=== PATIENT | male | born 1990 | race Caucasian/White ===

== ENCOUNTER 2022-03-20 22:18 | Emergency (ER) | payer BC ==
[2022-03-20 23:17] LABS: ALT (SGPT) 30 U/L (8-55); AST (SGOT) 75 U/L (5-34); Albumin 4.7 g/dL (3.5-5.0); Alkaline Phosphatase 57 U/L (40-110); Anion Gap 29 mmol/L (10-20); BUN (Urea Nitrogen) 17 mg/dL (8.9-20.6); Bilirubin, Total 1.6 mg/dL (0.2-1.2); CK (CPK) 2099 U/L (30-200); Calc. Creatinine Clearance 0 mL/min (70-130); Calcium 9.1 mg/dL (7.8-10.44); Carbon Dioxide 21 mmol/L (22-29); Chloride 83 mmol/L (98-107); Estimated GFR 82; Globulin 2.1 g/dL (2.4-3.5); Glucose 109 mg/dL (70-105); Potassium 4.3 mmol/L (3.5-5.1); Protein, Total 6.8 g/dL (6.0-8.3); Sodium 129 mmol/L (136-145)
[2022-03-20 23:18] LABS: #Basophils 0.1 thou/uL (0.0-0.2); #Lymphocytes 0.9 thou/uL (1.20-3.40); #Monocytes 0.9 thou/uL (0.11-0.59); #Neutrophils 10.2 thou/uL (1.40-6.50); %Basophils 0.5 % (0.0-1.0); %Lymphocytes 7.4 % (21.0-51.0); %Monocytes 7.3 % (0.0-10.0); %Neutrophils 84.7 % (42.0-75.0); Hemoglobin 12.2 g/dL (14.0-18.0); Mean Corpuscular HGB CONC 33.9 g/dL (32.0-36.0); Mean Corpuscular Hemoglobin 33.4 pg (27.0-31.0); Mean Corpuscular Volume 98.6 fL (78.0-98.0); Platelet Count 191 thou/uL (130-400); RBC Distribution Width 10.5 % (11.5-14.5); Red Blood Cell (RBC) Count 3.65 mill/uL (4.70-6.10)
[2022-03-20] MEDS ORDERED: Sodium Chloride 0.9% 1,000 ML ONE (23:26)
[2022-03-20 23:41] LABS: CO2 Tension (PvCO2) 48.8 mmHg (42.0-51.0)
[2022-03-20 23:42] LABS: Base Excess-Venous 0.4 mmol/L (-2.0 to 3.0); Chloride 84 mmol/L (98-107); Hemoglobin - Calc 12.6 g/dL (14.0-18.0); Potassium 4.9 mmol/L (3.5-5.1); Sodium 122 mmol/L (138-145); vO2 Saturation-calc 45.7 % (60.0-85.0)
[2022-03-20 23:43] LABS: Calcium, Ionized 1.07 mmol/L (1.15-1.33); T. Carbon Dioxide 28.2 mmol/L (22.0-28.0)
[2022-03-23 03:10] LABS: Bicarbonate (HCO3v) 26.7 mmol/L (22.0-28.0)
== END 2022-03-21 00:50 | disposition left against medical advice (07) ==
LOC: NAV ERS 22:18
DX: E86.9 Volume depletion, unspecified (principal); E87.1 Hypo-osmolality and hyponatremia; R77.8 Other specified abnormalities of plasma proteins
CPT/HCPCS: 80053; 82330; 82550; 82553; 82803; 84484; 85025; 93005; 96360; J7050